=== PATIENT | female | born 1975 | race Caucasian/White ===

== ENCOUNTER 2021-03-21 11:46 | Day surgery (SDC) | payer OTHER ==
[2021-03-19 10:08] VITALS: BMI 58.4
[~2021-03-21 11:46] MED LIST: ALPRAZolam 0.25 MG TAB PO PRN; ALPRAZolam 0.5 MG TAB PO PRN; ASPIRIN 325 MG TAB PO STA; HEPARIN SODIUM,PORCINE 10,000 UNIT in SODIUM CHLORIDE 0.9% 1,000 ML IRRIGATION PRN; HEPARIN SODIUM,PORCINE 2,500 UNIT in SODIUM CHLORIDE 0.9% 250 ML IRRIGATION PRN; NITROGLYCERIN SL TABS 0.4 MG TAB SUBLINGUAL PRN; SODIUM CHLORIDE 0.9% 1,000 ML in EMPTY BAG 1 BAG IV ONE
[2021-03-21] MEDS ORDERED: fentaNYL (PF) 50 MCG/ML 2 ML AMP ONE (12:42)
[2021-03-21] MEDS ORDERED: LIDOCAINE 1% INJ 10MG/ML (20 ML MDV) ONE (12:42)
[2021-03-21] MEDS ORDERED: VERAPAMIL 2.5 MG/ML 2 ML AMP ONE (12:42)
[2021-03-21] MEDS ORDERED: HEPARIN SODIUM 1,000 UN/ML (10ML VL) ONE (12:42)
[2021-03-21 12:43] VITALS: RESP 18; TEMP 98.9
[2021-03-21] MEDS ORDERED: MIDAZOLAM 2 MG/2 ML VIAL IV ONE (13:11)
[2021-03-21] MEDS ORDERED: fentaNYL (PF) 50 MCG/ML 2 ML AMP IV ONE (13:11)
[2021-03-21] MEDS ORDERED: LIDOCAINE 1% INJ 10MG/ML (20 ML MDV) SQ ONE (13:12)
[2021-03-21] MEDS: VERAPAMIL SYRINGE (5 MG/10 ML) INTRAARTER ONE ×2 (13:14→13:24)
[2021-03-21] MEDS ORDERED: IOPAMIDOL-370 125ML BTL INJ ONE (13:21)
--- NOTE | 2021-03-21 13:27 | P.CARDCATH ---
Description of Procedure: PROCEDURES PERFORMED: Left heart catheterization, bilateral coronary angiography INDICATION: Abnormal stress test, chest pain HISTORY: She is a pleasant 45-year-old female with history of COVID-19 vaccination, family history of coronary artery disease with been having worsened episodes of chest pain associated with shortness of breath and occasionally with palpitations. She therefore had a stress test performed with stress-induced ischemia and therefore recommendation was for heart catheterization for definitive diagnosis. She was started on metoprolol with possible mild improvement in symptoms. CONSENT:I have discussed the risks, benefits and alternative therapies for the above-mentioned procedure and for both sedation/analgesia as well as necessary blood product administration, if indicated, as they pertain to this patient. The patient has indicated understanding and acceptance of the risks and procedures discussed. PROCEDURE: After the risks, benefits and alternatives of the above mentioned procedure explained in detail with the patient, informed consent was obtained. Patient was taken to the catheterization lab and prepped and draped in usual fashion. 1% lidocaine was used to anesthetize the right radial artery. A 6- Kazakh sheath was placed in the right radial artery using modified Seldinger technique. Left coronary angiography was performed with a 5-Kazakh JL 3.5 catheter and right coronary angiography was performed with a 5-Kazakh JR5 catheter in various views. A 5-Kazakh pigtail catheter was inserted into the left ventricle and pressure measurements were obtained. Left ventriculography was performed in the NAVAS projection with a power injection. The right radial sheath was removed and a TR band was placed with hemostasis achieved. The patient tolerated the procedure well. Patient was transported back to the post catheterization holding area in stable condition. Conscious Sedation: Patient was monitored under the direct supervision of vision of myself for conscious sedation using Versed and fentanyl for a total duration of 11 minutes HEMODYNAMICS: Aorta: 111/71 LV: 123/1, LVEDP 10 SELECTIVE CORONARY ARTERIOGRAPHY: LEFT MAIN: The left main is a large caliber vessel which bifurcates into the LAD and circumflex. There is no significant stenosis. LEFT ANTERIOR DESCENDING CORONARY ARTERY: LAD is a large caliber vessel which wraps around to the apex. There is no significant stenosis. LEFT CIRCUMFLEX CORONARY ARTERY: Left circumflex is a moderate caliber vessel without significant stenosis. RIGHT CORONARY ARTERY: The right coronary artery is a large caliber vessel which gives off a PDA and PLV branch and is the dominant vessel. There is no significant stenosis. FINAL IMPRESSION: 1. Normal coronary arteries as described above. 2. Normal left-sided filling pressures PLAN: 1. Aggressive risk factor modification per most recent ACC/AHA guidelines. 2. Patient minutes to some mild improvement with metoprolol. Other consideration may be arrhythmia and we would recommend a 1 week event monitor to further rule out any tachycardia or bradycardia arrhythmias. Follow-up in the office in 1-2 weeks.
[2021-03-21 16:22] VITALS: BP 144/89; PULSE 78
== END 2021-03-21 16:50 | disposition home or self-care (01) ==
LOC: CATHCVL 11:46 → EDBD 13:30 → CATHCVL 16:50
PROVIDERS: ATTEND Internal Medicine
DX: R94.39 Abnormal result of other cardiovascular function study (principal); R07.9 Chest pain, unspecified; Z82.49 Family history of ischemic heart disease and other diseases of the circulatory system
CPT/HCPCS: 93458; 81025; C1894; J2250; J2001; J3010; J1644; Q9967

== ENCOUNTER → 2021-06-19 | Outpatient (CLI) | payer OTHER ==
[2021-06-19 13:12] VITALS: BP 138/83; PULSE 92; RESP 18; TEMP 98.2; BMI 55.7
--- NOTE | 2021-06-19 14:08 | P.HPBAR ---
Bariatric H&P - History & Physicial H&P Date: 06/19/21 History & Physicial: Visit/CC: initial visit Patient initial contact: Initial weight: 149.685 kg Initial weight in pounds: 330.00 Height: 5 ft 4.5 in Initial BMI: 55.7 Last weight: Current weight: 149.685 kg Current weight in pounds: 330.00 Current BMI: 55.7 Rison body weight (based on NIH guidelines): 55.565 kg Excess body weight loss: 0.0% The patient is a 45 year-old F who presents for Bariatric Assessment. She comes in looking into the sleeve gastrectomy. She has tried in the past with weight watchers, Adipex and lost 60 pounds with weight regain and more. She has been trying to lose weight on her own with increasing walking and cutting out pop. Highest weight is at present. Her aunt was over 400-pounds and had the lap band and has done well. She denies moderate heartburn. No dysphagia. No prior surgeries to the stomach. She still has her gallbladder. She had 2-section and tubal ligation. She has hemorrhoids. No prior upper scope. No bleeding. No history of blood clots. No family history of bleeding or clots. No lower back pain. No hip pain. No knee pain. [facility] plan deferred. Past Medical History Additional Past Medical History / Comment(s): hx of SOB, leg swelling, chest pain History of Any Multi-Drug Resistant Organisms: None Reported Past Surgical History: Section, Heart Catheterization, Tubal Ligation Additional Past Surgical History / Comment(s): D&C. last heart cath march 2021. Past Anesthesia/Blood Transfusion Reactions: No Reported Reaction Past Psychological History: No Psychological Hx Reported Smoking Status: Never smoker Past Alcohol Use History: Rare Past Drug Use History: None Reported Surgical - Exam Vital Signs Temp Pulse Resp BP 98.2 F 92 18 138/83 06/19/21 13:07 06/19/21 13:07 06/19/21 13:07 06/19/21 13:07 Bariatric Checklist Checklist: Plan: Checklist: EGD: 1. Hiatal hernia: 2. H. Pylori: HgbA1c: Vitamin D: Smoking: Primary care physician referral: KENYATTA Bennett ([facility]) Psychiatry clearance: Cardiology clearance: Sleep study: Diet journal: VTE risk score: VTE risk level: Rehab needs at discharge:
[2021-06-19 14:59] LABS: HCT 47.1 % (34.0-46.0); MCHC 31.8 g/dL (31.0-37.0); Mean Platelet Volume 8.1; Platelet Count 296 k/uL (150-450); RBC 5.36 m/uL (3.80-5.40); RDW 12.5 % (11.5-15.5); WBC 11.3 k/uL (3.8-10.6)
[2021-06-19 15:32] LABS: INR 0.9 (<1.2); Partial Thromboplastin Time 23.6 sec (22.0-30.0); Prothrombin Time 9.6 sec (9.0-12.0)
[2021-06-20 01:03] LABS: % Iron Saturation 10.37 (12.00-45.00); ALT 29 U/L (8-44); AST 22 U/L (13-35); African American GFR (CKD) 100.6 (60.0-200.0); Albumin 4.5 g/dL (3.8-4.9); Albumin/Globulin Ratio 1.77 (1.60-3.17); Alkaline Phosphatase 78 U/L (41-126); Blood Urea Nitrogen 14.8 mg/dL (9.0-27.0); Calcium 9.7 mg/dL (8.7-10.3); Carbon Dioxide 29.9 mmol/L (21.6-31.8); Chloride 104 mmol/L (96-109); Chol/HDL Ratio 4.87 Ratio; Globulin 2.5 g/dL (1.6-3.3); Glucose 87 mg/dL (70-110); Iron 42 ug/dL (50-170); LDL Cholesterol,Calculated 102.4 mg/dL (0.0-131.0); Non-African American GFR(CKD) 86.8 (60.0-200.0); Potassium 4.4 mmol/L (3.5-5.5); Prealbumin 21.1 mg/dL (18.0-42.0); Sodium 140 mmol/L (135-145); Total Bilirubin <0.20 mg/dL (0.30-1.20); Total Iron Binding Capacity 403 ug/dL (228-460)
[2021-06-20 13:24] LABS: Zinc, Serum 68 ug/dL (60-130)
[2021-06-21 06:46] LABS: Vitamin A 62 ug/dL (38-106)
[2021-06-21 13:22] LABS: Vit B1(Thiamine) 99 ug/L (38-122)
[2021-06-21 16:07] LABS: Anabasine Urine <2.0 ng/mL (<2.0)
[2021-06-24 18:28] LABS: Selenium 118 mcg/L (63-160)
== END | disposition home or self-care (01) ==
LOC: BARWHC3 12:38
PROVIDERS: ATTEND Surgery Plastic and Reconstructive Surgery
DX: E89.1 Postprocedural hypoinsulinemia (principal); D50.8 Other iron deficiency anemias; E44.0 Moderate protein-calorie malnutrition; E55.9 Vitamin D deficiency, unspecified; K74.1 Hepatic sclerosis; N19 Unspecified kidney failure; K50.90 Crohn's disease, unspecified, without complications
CPT/HCPCS: 84255; 84134; 84425; 80061; 80053; 82607; 82728; 82525; 82746; 83540; 83550; 83735; 84100; 84443; 84590; 84630; 85027; 85610; 85730; 82306; 80323; 83970; 83036; 80307; 99203; 93005; G0482

== ENCOUNTER 2021-07-15 08:55 | Day surgery (SDC) | payer OTHER ==
[2021-07-11 12:00] VITALS: BMI 56.6
--- NOTE | 2021-07-15 06:59 | P.GSHP ---
History of Present Illness H&P Date: 07/15/21 CHIEF COMPLAINT: GERD HISTORY OF PRESENT ILLNESS: The patient is a 45-year-old female who presents reports gastroesophageal reflux disease. Upper endoscopy was offered for further evaluation and management. PAST MEDICAL HISTORY: Please see list. PAST SURGICAL HISTORY: Please see list. MEDICATIONS: Please see list. ALLERGIES: Please see list. SOCIAL HISTORY: No illicit drug use FAMILY HISTORY: No reports of Crohn disease or ulcerative colitis. REVIEW OF ORGAN SYSTEMS: CONSTITUTIONAL: No reports of fevers or chills. GI: Denies any blood in stools or constipation. PHYSICAL EXAM: VITAL SIGNS: Stable GENERAL: Well-developed and pleasant in no acute distress. HEENT: No scleral icterus. Extraocular movements grossly intact. Moist buccal mucosa. NECK: Supple without lymphadenopathy. CHEST: Unlabored respirations. Equal bilateral excursions. CARDIOVASCULAR: Regular rate and rhythm. Distal 2+ pulses. ABDOMEN: Soft, nondistended. MUSCULOSKELETAL: No clubbing, cyanosis, or edema. ASSESSMENT: 1. Gastroesophageal reflux disease PLAN: 1. Recommend proceeding with an upper endoscopy Past Medical History Additional Past Medical History / Comment(s): hx of SOB, leg swelling & chest pain after covid vaccine- she had heart monitor and heart cath and she states symptoms gradually subsided., low iron. History of Any Multi-Drug Resistant Organisms: None Reported Past Surgical History: Section, Heart Catheterization, Tubal Ligation Additional Past Surgical History / Comment(s): D&C. ,heart cath march 2021. Past Anesthesia/Blood Transfusion Reactions: Previous Problems w/ Anesthesia, Motion Sickness Additional Past Anesthesia/Blood Transfusion Reaction / Comment(s): states itchy after D & C. Past Psychological History: No Psychological Hx Reported Smoking Status: Never smoker Past Alcohol Use History: Rare Past Drug Use History: None Reported - Past Family History Mother Family Medical History: No Reported History Medications and Allergies Home Medications Medication Instructions Recorded Confirmed Type Multivitamin/Iron/Folic Acid 1 each PO DAILY 03/19/21 07/11/21 History [Centrum Adults Tablet] medroxyPROGESTERone [Depo-Provera] 150 mg IM Q90D 03/19/21 07/11/21 History Cetirizine HCl [Zyrtec] 10 mg PO DAILY 07/11/21 07/11/21 History Iron 36 mg PO DAILY 07/11/21 07/11/21 History Allergies Allergy/AdvReac Type Severity Reaction Status Date / Time No Known Allergies Allergy Verified 07/11/21 11:38
[~2021-07-15 08:55] MED LIST changes: -ALPRAZolam 0.25 MG TAB PO PRN; -ALPRAZolam 0.5 MG TAB PO PRN; -ASPIRIN 325 MG TAB PO STA; -HEPARIN SODIUM,PORCINE 10,000 UNIT in SODIUM CHLORIDE 0.9% 1,000 ML IRRIGATION PRN; -HEPARIN SODIUM,PORCINE 2,500 UNIT in SODIUM CHLORIDE 0.9% 250 ML IRRIGATION PRN; +LACTATED RINGERS 1,000 ML IV SCH; -NITROGLYCERIN SL TABS 0.4 MG TAB SUBLINGUAL PRN; -SODIUM CHLORIDE 0.9% 1,000 ML in EMPTY BAG 1 BAG IV ONE
[2021-07-15 09:21] VITALS: TEMP 98.7
--- NOTE | 2021-07-15 10:25 | P.PCN ---
Date of Procedure: 07/15/21 Description of Procedure: PREOPERATIVE DIAGNOSIS: Gastroesophageal reflux disease. Morbid obesity. POSTOPERATIVE DIAGNOSIS: Morbid obesity. Gastritis. Gastroesophageal reflux disease. OPERATION: Esophagogastroduodenoscopy with biopsies along antrum. SURGEON: Radha Boyle MD ANESTHESIA: MAC. INDICATIONS: The patient is a 47-year-old female who presents with a history of reflux disease. Benefits and risks of the procedure were described. Informed consent was obtained. DESCRIPTION: The patient was brought into the endoscopy suite and laid in the left lateral decubitus position. An Olympus gastroscope was passed along the posterior oropharynx down to the distal esophagus where the squamocolumnar junction was encountered at 37 cm from the incisors. The stomach was entered and no bile reflux was found. Additional findings are listed below. Biopsies with cold forceps were obtained of the antrum. The first through third portion of the duodenum was examined and unremarkable. Retroflexion of the scope confirmed Hill grade 2 lower esophageal valve. The squamocolumnar junction demonstrated LA grade B erosive esophagitis. The stomach was desufflated. The patient tolerated the procedure well. FINDINGS: Squamocolumnar junction 37 cm from the incisors. Diaphragmatic hiatus at 37 cm. Hill grade 2 lower esophageal valve. LA grade B erosive esophagitis. No active duodenitis. Chronic gastritis RECOMMENDATIONS: Upper endoscopy as needed. Plan - Discharge Summary New Discharge Prescriptions: New Omeprazole [PriLOSEC] 40 mg PO DAILY #14 cap Continue medroxyPROGESTERone [Depo-Provera] 150 mg IM Q90D Multivitamin/Iron/Folic Acid [Centrum Adults Tablet] 1 each PO DAILY Cetirizine HCl [Zyrtec] 10 mg PO DAILY Iron 36 mg PO DAILY Discharge Medication List Multivitamin/Iron/Folic Acid [Centrum Adults Tablet] 1 each PO DAILY 03/19/21 [History] medroxyPROGESTERone [Depo-Provera] 150 mg IM Q90D 03/19/21 [History] Cetirizine HCl [Zyrtec] 10 mg PO DAILY 07/11/21 [History] Iron 36 mg PO DAILY 07/11/21 [History] Omeprazole [PriLOSEC] 40 mg PO DAILY #14 cap 07/15/21 [Rx] Follow up [facility]ment(s[facility]Ref[facility] [place] [facility] - [facility]21 Patient Instructions/Handouts: Gastritis (DC), Diet for Stomach Ulcers and Gastritis (ED) Discharge Disposition: HOME SELF-CARE
[2021-07-15 10:44] VITALS: BP 148/92; PULSE 87; RESP 14
== END 2021-07-15 11:18 | disposition home or self-care (01) ==
LOC: ORWHC2ENDO 08:55
PROVIDERS: ATTEND Surgery Plastic and Reconstructive Surgery
DX: K21.9 Gastro-esophageal reflux disease without esophagitis (principal); K29.50 Unspecified chronic gastritis without bleeding; Z79.899 Other long term (current) drug therapy
CPT/HCPCS: 43239; 81025; 88305

== ENCOUNTER → 2021-07-31 | Outpatient (CLI) | payer OTHER ==
--- NOTE | 2021-07-31 13:53 | P.BASOAP ---
Subjective Progress Note Date: 07/31/21 She is looking into sleeve. No looking into the bypass. Labs reviewed. [facility] reviewed. She is looking into the gastrectomy. will need lysis of adhesions. Objective - Vital Signs Vital signs: Intake & Output 07/30/21 07/31/21 07/31/21 18:59 06:59 18:59 Weight 151.046 kg Assessment/Plan Plan: Date: Initial Weight: 149.685 kg Initial BMI: Current Weight: 151.046 kg Current BMI: Type of Surgery: Total Volume in Band: Previous Volume: Volume Removed: Volume Added: Band Size:
[2021-07-31 13:57] VITALS: BP 159/90; PULSE 72; RESP 18; TEMP 98.2; BMI 56.2
== END | disposition home or self-care (01) ==
LOC: BARWHC3 12:44
PROVIDERS: ATTEND Surgery Plastic and Reconstructive Surgery
DX: E66.01 Morbid (severe) obesity due to excess calories (principal); Z68.43 Body mass index [BMI] 50.0-59.9, adult
CPT/HCPCS: 99211

== ENCOUNTER → 2021-08-12 | Outpatient (CLI) | payer OTHER ==
[2021-08-12 11:31] VITALS: BMI 59.0
== END | disposition home or self-care (01) ==
LOC: BARWHC3 08:45
PROVIDERS: ATTEND Surgery Plastic and Reconstructive Surgery
DX: E66.01 Morbid (severe) obesity due to excess calories (principal)
CPT/HCPCS: 97804

== ENCOUNTER → 2021-10-16 | Outpatient (CLI) | payer OTHER ==
--- NOTE | 2021-10-16 16:17 | P.BASOAP ---
Subjective Progress Note Date: 10/16/21 Medical supervise weight loss for 6 months described. Currently recommend download food diary general. Follow-up in 1 month. Appropriate weight loss reviewed. Assessment/Plan Plan: Date: Initial Weight: 149.685 kg Initial BMI: Current Weight: Current BMI: Type of Surgery: Total Volume in Band: Previous Volume: Volume Removed: Volume Added: Band Size:
[2021-10-16 16:19] VITALS: BP 186/99; PULSE 87; TEMP 97.9; BMI 55.0
== END | disposition home or self-care (01) ==
LOC: BARWHC3 15:49
PROVIDERS: ATTEND Surgery Plastic and Reconstructive Surgery
DX: E66.01 Morbid (severe) obesity due to excess calories (principal); Z68.43 Body mass index [BMI] 50.0-59.9, adult
CPT/HCPCS: 99211

== ENCOUNTER → 2021-11-13 | Outpatient (CLI) | payer OTHER ==
[2021-11-13 15:36] VITALS: BP 154/94; PULSE 93; RESP 16; TEMP 98.2; BMI 55.3
--- NOTE | 2021-11-13 15:48 | P.BASOAP ---
Subjective Progress Note Date: 11/13/21 DATE OF SERVICE: 11/13/2021 CHIEF COMPLAINT: Morbid obesity. HISTORY OF PRESENT ILLNESS: Anita Desouza is a 46-year-old female who comes with lifelong morbid obesity. She comes in looking into the sleeve gastrectomy. As a result of her morbid obesity, she has developed heart disease. She is undergoing medical supervised weight loss. She has brought in her food journal. She has good food choices. Her carbs are under 200 grams daily and also under 150 g. She is obtaining too much protein of 150 grams daily. At height of 5 feet 4.5 inches, her ideal body weight is 144 pounds. Initial weight of 329 pounds BMI 55.8. She comes in 326 pounds from 325 pounds, 1 month ago. She has gained 1 pounds in 1 months. Her body mass index is 55.3. She is 182 pounds overweight. PHYSICAL EXAM: VITAL SIGNS: Height 5 foot 4.5 inches, weight 326 pounds. BMI 55.3 Vital Signs Temp 98.2 F 11/13/21 15:31 Pulse 93 11/13/21 15:31 Resp 16 11/13/21 15:31 BP 154/94 11/13/21 15:31 Pulse Ox GENERAL: Well-developed in no acute distress. HEENT: No scleral icterus. Extraocular movements grossly intact. Hears conversational speech. No nasal drainage. NECK: Supple without lymphadenopathy. CHEST: Nonlabored respirations with equal bilateral excursions. CARDIOVASCULAR: Regular rate and regular rhythm. Distal 2+ pulses. ABDOMEN: Obese, soft, nontender, nondistended. MUSCULOSKELETAL: No clubbing, cyanosis. NEURO: No focal or lateralizing signs. Cranial nerves 2 through 12 grossly within normal limits. PSYCH: Appropriate affect. Alert and oriented to person, place and time. SKIN: Good skin turgor. Well perfused. ASSESSMENT: 1. Morbid obesity due to excess calories 2. Body mass index of 56.4 to 55.3 3. Angina 4. Leukocytosis 5. Iron deficiency 6. Hypertriglyceridemia 7. Peritoneal adhesions 8. Hypertension PLAN: 1. Recommend carbs under 150 grams daily. 2. She has too much protein of 150 grams. Recommend decrease protein to 80 g daily. 3. Follow up in 1 month otherwise, she demonstrates excellent food choices. Objective - Vital Signs Vital signs: Vital Signs Temp 98.2 F 11/13/21 15:31 Pulse 93 11/13/21 15:31 Resp 16 11/13/21 15:31 BP 154/94 11/13/21 15:31 Pulse Ox Intake & Output 11/12/21 11/13/21 11/13/21 18:59 06:59 18:59 Weight 148.325 kg Assessment/Plan Plan: Date: 11/13/21 Initial Weight: 149.685 kg Initial BMI: 55.7 Current Weight: 148.325 kg Current BMI: 55.3 Type of Surgery: Total Volume in Band: Previous Volume: Volume Removed: Volume Added: Band Size:
== END | disposition home or self-care (01) ==
LOC: BARWHC3 15:26
PROVIDERS: ATTEND Surgery Plastic and Reconstructive Surgery
DX: E66.01 Morbid (severe) obesity due to excess calories (principal); I20.9 Angina pectoris, unspecified; D72.829 Elevated white blood cell count, unspecified; E61.1 Iron deficiency; E78.1 Pure hyperglyceridemia; K66.0 Peritoneal adhesions (postprocedural) (postinfection); I10 Essential (primary) hypertension; Z68.43 Body mass index [BMI] 50.0-59.9, adult
CPT/HCPCS: 99211

== ENCOUNTER → 2021-12-18 | Outpatient (CLI) | payer OTHER ==
--- NOTE | 2021-12-18 13:35 | P.BASOAP ---
Subjective Progress Note Date: 12/18/21 DATE OF SERVICE: 12/18/2021 CHIEF COMPLAINT: Morbid obesity. HISTORY OF PRESENT ILLNESS: Anita Desouza is a 46-year-old female who comes with lifelong morbid obesity. She comes in looking into the sleeve gastrectomy. She comes in for medical supervised weight loss including dietary food journal. She has appropriate protein intake between 50-100 g daily. She has appropriate caloric restriction. Caloric intake is less than 1600 Kcal daily. She denies abdominal pain. At height of 5 feet 4.5 inches, her ideal body weight is 144 pounds. Initial weight of 329 pounds BMI 55.8. She comes in 322 pounds from 326 pounds, 1 month ago. She has lost 4 pounds in 1 months. Her body mass index is 54.6. She is 178 pounds overweight. PHYSICAL EXAM: VITAL SIGNS: Height 5 foot 4.5 inches, weight 322 pounds. BMI 54.6 Vital Signs Temp 98 F 12/18/21 13:35 Pulse 76 12/18/21 13:35 Resp BP 151/101 12/18/21 13:35 Pulse Ox Intake & Output 12/18/21 12/18/21 12/19/21 06:59 18:59 06:59 Weight 146.51 kg GENERAL: Well-developed in no acute distress. HEENT: No scleral icterus. Extraocular movements grossly intact. Hears conversational speech. No nasal drainage. NECK: Supple without lymphadenopathy. CHEST: Nonlabored respirations with equal bilateral excursions. CARDIOVASCULAR: Regular rate and regular rhythm. Distal 2+ pulses. ABDOMEN: Obese, soft, nontender, nondistended. MUSCULOSKELETAL: No clubbing, cyanosis. NEURO: No focal or lateralizing signs. Cranial nerves 2 through 12 grossly within normal limits. PSYCH: Appropriate affect. Alert and oriented to person, place and time. SKIN: Good skin turgor. Well perfused. ASSESSMENT: 1. Morbid obesity due to excess calories 2. Body mass index of 56.4 to 54.6 3. Angina 4. Leukocytosis 5. Iron deficiency 6. Hypertriglyceridemia 7. Peritoneal adhesions 8. Hypertension 9. Dietary surveillance and counseling PLAN: 1. Continue medical supervised weight loss for 3-4 months. 2. She has persistent elevation of her blood pressure of over 4 reads and occasions. Patient reports she follows up with her PCP and has low blood pressures. 3. Recommend home blood pressure checks. Assessment/Plan Plan: Date: Initial Weight: 149.685 kg Initial BMI: Current Weight: Current BMI: Type of Surgery: Total Volume in Band: Previous Volume: Volume Removed: Volume Added: Band Size:
[2021-12-18 13:48] VITALS: PULSE 76; TEMP 98; BMI 54.6
[2021-12-18 13:49] VITALS: BP 151/101
== END | disposition home or self-care (01) ==
LOC: BARWHC3 12:11
PROVIDERS: ATTEND Surgery Plastic and Reconstructive Surgery
DX: E66.01 Morbid (severe) obesity due to excess calories (principal); I20.9 Angina pectoris, unspecified; D72.829 Elevated white blood cell count, unspecified; E78.1 Pure hyperglyceridemia; K66.0 Peritoneal adhesions (postprocedural) (postinfection); I10 Essential (primary) hypertension; Z71.3 Dietary counseling and surveillance; Z68.43 Body mass index [BMI] 50.0-59.9, adult
CPT/HCPCS: 99211

== ENCOUNTER → 2022-03-05 | Outpatient (CLI) | payer OTHER ==
[2022-03-05 14:30] VITALS: BP 148/84; PULSE 94; TEMP 98.2; BMI 53.4
--- NOTE | 2022-03-05 15:05 | P.BASOAP ---
Subjective Progress Note Date: 03/05/22 Sleeve gastrectomy. Plan for sleeve. Diet, fluids, figeting. Objective - Vital Signs Vital signs: Vital Signs Temp 98.2 F 03/05/22 14:26 Pulse 94 03/05/22 14:26 Resp BP 148/84 03/05/22 14:26 Pulse Ox FiO2 Intake & Output 03/04/22 03/05/22 03/05/22 18:59 06:59 18:59 Weight 143.335 kg Assessment/Plan Plan: Date: 03/05/22 Initial Weight: 149.685 kg Initial BMI: 55.7 Current Weight: 143.335 kg Current BMI: 53.4 Type of Surgery: Total Volume in Band: Previous Volume: Volume Removed: Volume Added: Band Size:
== END | disposition home or self-care (01) ==
LOC: BARWHC3 13:57
PROVIDERS: ATTEND Surgery Plastic and Reconstructive Surgery
DX: E66.01 Morbid (severe) obesity due to excess calories (principal); Z68.43 Body mass index [BMI] 50.0-59.9, adult
CPT/HCPCS: 99211

== ENCOUNTER → 2022-05-14 | Outpatient (CLI) | payer OTHER ==
[2022-05-14 23:33] LABS: Basophils # (A) 0.04 X 10*3/uL (0.00-0.10); Basophils % (A) 0.4 %; Eosinophils # (A) 0.18 X 10*3/uL (0.04-0.35); Eosinophils % (A) 1.7 %; HCT 43.6 % (37.2-46.3); HGB 13.5 g/dL (12.0-15.0); Immature Grans, Automated 0.3 %; Lymphocytes # (A) 3.49 X 10*3/uL (0.90-5.00); Lymphocytes % (A) 32.2 %; MCH 26.3 pg (27.0-32.0); MCV 84.8 fL (80.0-97.0); Monocytes # (A) 0.73 X 10*3/uL (0.20-1.00); Monocytes % (A) 6.7 %; NRBC Per 100 WBC 0 /100 WBCS (0.0-0.0); Neutrophils # (A) 6.37 X 10*3/uL (1.80-7.70); Neutrophils % (A) 58.7 %; Platelet Count 304 X 10*3/uL (140-440); RBC 5.14 X 10*6/uL (4.10-5.20); WBC 10.84 X 10*3/uL (4.50-10.00)
[2022-05-15 00:31] LABS: Albumin 4.5 g/dL (3.8-4.9); Albumin/Globulin Ratio 1.74 (1.60-3.17); Anion Gap 12.3 mmol/L (10.00-18.00); BUN/Creat Ratio 32.42 Ratio (12.00-20.00); Blood Urea Nitrogen 29.6 mg/dL (9.0-27.0); Calcium 9.6 mg/dL (8.7-10.3); Carbon Dioxide 22.1 mmol/L (20.0-27.5); Globulin 2.6 g/dL (1.6-3.3); Non-African American GFR(CKD) 75.9 (60.0-200.0); Potassium 4.7 mmol/L (3.5-5.5); Total Bilirubin 0.4 mg/dL (0.30-1.20); Total Protein 7.1 g/dL (6.2-8.2)
== END | disposition home or self-care (01) ==
LOC: LABPAT 15:24
PROVIDERS: ATTEND Surgery Plastic and Reconstructive Surgery
DX: Z01.812 Encounter for preprocedural laboratory examination (principal)
CPT/HCPCS: 80053; 85025; 93005

== ENCOUNTER 2022-05-26 08:00 | Inpatient (IN) | payer OTHER ==
[2022-06-16] MEDS ORDERED: ceFAZolin 3 GM in SODIUM CHLORIDE 0.9% 100 ML IVPB PRN (05:00)
[2022-06-16] MEDS ORDERED: ONDANSETRON 4 MG/2 ML VIAL IVP ONE ×2 (06:22→17:46)
[2022-06-16] MEDS ORDERED: DEXAMETHASONE SOD PHOSPHATE 4 MG/ML 1 ML VIAL IV ONE (06:22)
[2022-06-16] MEDS ORDERED: HYDROmorphone 0.5 MG/0.5 ML SYRINGE IVP PRN (06:22)
[2022-06-16] MEDS ORDERED: CHLORHEXIDINE GLUCONATE 15 ML CUP MUCOUS MEM PRN (07:00)
[2022-06-16] MEDS ORDERED: PANTOPRAZOLE 40 MG/10 ML VIAL IVP PRN (07:00)
[2022-06-16] MEDS ORDERED: ENOXAPARIN 40 MG/0.4 ML SYRINGE SQ PRN ×2 (10:10→15:14)
--- NOTE | 2022-06-16 10:10 | P.GSHP ---
History of Present Illness H&P Date: 06/16/22 CHIEF COMPLAINT: Morbid obesity HISTORY OF PRESENT ILLNESS: Anita Desouza is a 46-year-old female who comes with lifelong morbid obesity. She is looking into sleeve gastrectomy for management of morbid obesity. At height of 5 feet 4.5 inches, her ideal body weight is 144 pounds. Initial weight of 329 pounds BMI 55.8. PAST MEDICAL HISTORY: 1. Morbid obesity due to excess calories 2. Body mass index of 55.8, initial 3. Angina 4. Osteoarthritis lower extremities. PAST SURGICAL HISTORY: 1. Cardiac catheterization 2. D & C 3. Tubal ligation 4. section HOME MEDICATIONS: Home Medications Medication Instructions Recorded Confirmed Multivitamin/Iron/Folic Acid 1 each PO DAILY 03/19/21 05/19/22 [Centrum Adults Tablet] medroxyPROGESTERone [Depo-Provera] 150 mg IM Q90D 03/19/21 05/19/22 Cetirizine HCl [Zyrtec] 10 mg PO DAILY 07/11/21 05/19/22 Iron 36 mg PO DAILY 07/11/21 05/19/22 Omeprazole [PriLOSEC] 40 mg PO DAILY PRN 02/05/22 05/19/22 ALLERGIES: Allergies Allergy/AdvReac Type Severity Reaction Status Date / Time No Known Allergies Allergy Verified 05/19/22 10:08 SOCIAL HISTORY: No past tobacco use. FAMILY HISTORY: No family history of ulcerative colitis disease or Crohn's disease. Family history of morbid obesity. No lupus in the family. No reports of stomach or esophageal cancer. REVIEW OF ORGAN SYSTEMS: CONSTITUTIONAL: At height of 5 feet 4.5 inches, her ideal body weight is 144 pounds. She comes in 329 pounds. Her body mass index is 55.8. She is 185 pounds overweight. HEENT: Denies any active troubles with vision or hearing. ENDOCRINE: Has diabetes. No hypothyroidism. CARDIOVASCULAR: Past reports of palpitations or heart attacks or chest pain. RESPIRATORY: Has shortness of breath. GASTROINTESTINAL: Denies any bright red blood per rectum. No diarrhea. No constipation. Has hemorrhoids. GENITOURINARY: Has bladder urgency. No recent blood in urine MUSCULOSKELETAL: Has lower back pain and joint pain. Has osteoarthritis of the knees. NEURO: No headaches. No seizure disorders. Has neuropathy. PSYCH: Has depression. No suicidal ideation. RHEUMATOLOGIC: No lupus. No rheumatoid arthritis. HEMATOLOGIC: Denies any abnormal bleeding or bruising. SKIN: No rash. No skin cancer. PHYSICAL EXAM: VITAL SIGNS: Height 5 foot 4.5 inches, weight 315 pounds. BMI 53.4 GENERAL: Well-developed in no acute distress. HEENT: No scleral icterus. Extraocular movements grossly intact. Hears conversational speech. No nasal drainage. NECK: Supple without lymphadenopathy. CHEST: Nonlabored respirations with equal bilateral excursions. CARDIOVASCULAR: Regular rate and regular rhythm. Distal 2+ pulses. ABDOMEN: Obese, soft, nontender, nondistended. MUSCULOSKELETAL: No clubbing, cyanosis. NEURO: No focal or lateralizing signs. Cranial nerves 2 through 12 grossly within normal limits. PSYCH: Appropriate affect. Alert and oriented to person, place and time. SKIN: Good skin turgor. Well perfused. ASSESSMENT: 1. Morbid obesity due to excess calories 2. Body mass index of 56.4 to 53.4 3. Angina 4. Osteoarthritis left extremities PLAN: 1. Bariatric options between a sleeve, band and a Wendy-en-Y gastric bypass were reviewed in detail. The patient elected for a sleeve gastrectomy. Robotic assisted approach described. 2. The [place] [facility] Data was also reviewed with benefits and risks as described. 3. An 8 page second-generation bariatric consent form was reviewed in detail including potential of bleeding, infection, leaks, adequate weight loss, nutritional deficiencies which the patient demonstrated understanding of the risks. 4. A 2 week high-protein low caloric 800 kcal diet described to address hepatomegaly. 5. Preoperative labs including complete metabolic panel and CBC with type and screen recommended. 6. DVT prophylaxis per [place] [facility]. 7. Antibiotic prophylaxis. 8. Inpatient hospitalization anticipated for more than 2 nights. 9. All questions and concerns were addressed with the patient. 10. She is at elevated risk for perioperative complications with body mass index over 50. 11. Overall, patient has expressed understanding of bariatric care including postoperative diet and commitment of lifestyle. Patient should benefit from surgical intervention for correction of her morbid obesity. 12. Fluid intake over 64 ounces described including ambulation and exercising described. Past Medical History Past Medical History: GERD/Reflux Additional Past Medical History / Comment(s): hx of SOB, leg swelling & chest pain after covid vaccine- she had heart monitor and heart cath and she states symptoms gradually subsided., low iron. arthritis in back and shoulder, History of Any Multi-Drug Resistant Organisms: None Reported Past Surgical History: Section, Heart Catheterization, Tubal Ligation Additional Past Surgical History / Comment(s): D&C. ,heart cath march 2021. EKG, Past Anesthesia/Blood Transfusion Reactions: Previous Problems w/ Anesthesia, Motion Sickness Additional Past Anesthesia/Blood Transfusion Reaction / Comment(s): states itchy after D & C. Smoking Status: Never smoker - Past Family History Mother Family Medical History: No Reported History Father Family Medical History: Hypertension Medications and Allergies Home Medications Medication Instructions Recorded Confirmed Type Multivitamin/Iron/Folic Acid 1 each PO DAILY 03/19/21 06/12/22 History [Centrum Adults Tablet] medroxyPROGESTERone [Depo-Provera] 150 mg IM Q90D 03/19/21 06/12/22 History Cetirizine HCl [Zyrtec] 10 mg PO DAILY 07/11/21 06/12/22 History Iron 36 mg PO DAILY 07/11/21 06/12/22 History Omeprazole [PriLOSEC] 40 mg PO DAILY PRN 02/05/22 06/12/22 History Allergies Allergy/AdvReac Type Severity Reaction Status Date / Time No Known Allergies Allergy Verified 06/12/22 15:28
[2022-06-16] MEDS: LACTATED RINGERS 1,000 ML IV SCH (11:47)
[2022-06-16] MEDS ORDERED: SCOPOLAMINE 1 MG/72 HR PATCH TRANSDERM ONE (15:14)
[2022-06-16] MEDS ORDERED: SCOPOLAMINE 1 MG/72 HR PATCH TRANSDERM STA (15:14)
[2022-06-16] MEDS ORDERED: MIDAZOLAM 2 MG/2 ML VIAL ONE (15:36)
[2022-06-16] MEDS ORDERED: GLYCOPYRROLATE 0.2 MG/ML 2 ML VIAL ONE (15:36)
[2022-06-16] MEDS ORDERED: KETOROLAC 15 MG/ML 1 ML VIAL ONE (15:36)
[2022-06-16] MEDS ORDERED: HYDROmorphone (PF) 1 MG/ML ONE (15:36)
[2022-06-16] MEDS ORDERED: fentaNYL (PF) 50 MCG/ML 2 ML AMP ONE (15:36)
[2022-06-16] MEDS ORDERED: ROCURONIUM 10 MG/ML (5 ML VIAL) IV ONE (15:36)
[2022-06-16] MEDS ORDERED: NEOSTIGMINE 1 MG/ML 10 ML VIAL ONE (15:36)
[2022-06-16] MEDS ORDERED: SUCCINYLCHOLINE CHLORIDE 200 MG/10 ML VIAL IV ONE (15:36)
[2022-06-16] MEDS ORDERED: PROPOFOL 10 MG/ML 20 ML VIAL IV ONE (15:36)
[2022-06-16] MEDS ORDERED: LIDOCAINE 2% INJ 20 MG/ML (2 ML VIAL) ONE (15:36)
[2022-06-16] MEDS ORDERED: LIDOCAINE 0.5%-EPI 1:200,000 50 ML VIAL SQ ONE (16:07)
[2022-06-16] MEDS ORDERED: LACTATED RINGERS 1,000 ML IV ONE (17:01)
[2022-06-16] MEDS ORDERED: HYDROmorphone 1 MG/ML 1 ML SYRINGE IVP PRN (17:51)
[2022-06-16] MEDS ORDERED: diphenhydrAMINE 50 MG/ML 1 ML VIAL IVP PRN (17:51)
[2022-06-16] MEDS ORDERED: SODIUM CHLORIDE 0.9% 2,000 ML IV ONE (17:51)
[2022-06-16] MEDS ORDERED: NALOXONE 0.4 MG/ML 1 ML VIAL IV PRN (17:51)
[2022-06-16] MEDS ORDERED: HYOSCYAMINE ORAL DROPS 1.875 MG/15 ML BOTTLE PO PRN (17:51)
[2022-06-16] MEDS ORDERED: fentaNYL PCA 500 MCG/50 ML BAG IV PRN (17:54)
--- NOTE | 2022-06-16 17:58 | P.OP ---
Date of Procedure: 06/16/22 Description of Procedure: SURGEON: SANCHEZ MATTHEWS MD PREOPERATIVE DIAGNOSES: 1. Morbid obesity due to excess calories 2. Body mass index of 56.4 to 53.4 3. Angina 4. Osteoarthritis left extremities POSTOPERATIVE DIAGNOSES: 1. Morbid obesity due to excess calories 2. Body mass index of 56.4 to 53.4 3. Angina 4. Osteoarthritis left extremities OPERATION: 1. Robotic assisted daVinci Xi laparoscopic sleeve gastrectomy with 40-Mongolian bougie, multiport. 2. Intraoperative esophagogastroduodenoscopy. ANESTHESIA: Gen. local anesthetic ESTIMATED BLOOD LOSS: 5 mL SPECIMENS REMOVED: Sleeve gastrectomy COMPLICATIONS: None. FINDINGS: 1. Negative intraoperative esophagogastrojejunoscopy leak test. 2. No hepatomegaly and no large hiatus hernia. 3. Total of 7 staplers used including 2 - 60 mm green robot marco and 5 - 60 mm blue robot loads used to create the gastric sleeve. 4. Sleeve gastrectomy, 30 x 5 cm INDICATIONS: Anita Desouza is a 46-year-old female who comes with lifelong morbid obesity. She is looking into sleeve gastrectomy for management of morbid obesity. At height of 5 feet 4.5 inches, her ideal body weight is 144 pounds. Initial weight of 329 pounds BMI 55.8. Today she comes in 292 pounds. All surgical options for morbid obesity had been described using the [place] bariatric surgery collaborative comorbidity resolution including complication risk score. A second-generation bariatric consent form was described in detail including the possibility of protein malnutrition, leaks, gastric stricture, venous thrombosis, gastroesophageal reflux disease, need for further surgery for which she demonstrated understanding. Benefits and risks of the procedure were described at length. Informed consent was obtained. DESCRIPTION: The patient was brought into the operating room theater. Preoperatively she had received Lovenox subcutaneously for DVT prophylaxis. Additionally she had Peridex oral solution as an oral decontaminant. After general induction, the abdomen was prepped and draped in standard sterile fashion. An Ioban draping was placed along the abdomen. A robotic da Stephanie Xi system was prepped and primed. At 15 cm from the xiphoid, proposed port sites were marked with indelible marker along the anterior axillary line bilaterally, mid axillary line bilaterally with each ports were marked 10 to 15 cm from each other. The robotic stapler port was marked for the right midclavicular line. A 5 mm 0 degrees laparoscopic trocar entry was performed along the left upper quadrant. The abdomen was insufflated to 15 mmHg pressure was tolerated well. Diagnostic laparoscopy demonstrated no injury to bowel, viscera, or mesentery. No evidence of large hiatus hernia was identified. The liver edge was sharp consistent with 2 week low-carb high-protein diet. A 8 mm port was placed along the left upper abdominal wall after exchanging the 5 mm port. A separate 8 mm port was placed along the left lateral abdominal wall. Please note that the ports were placed at least 20 cm away from the target anatomy. Care was taken to check each robotic arms were safely away from collision with the bed or the patient. At the epigastrium, a medium sized Noman liver retractor was placed under direct visualization with the Iron Assistant Food Service Director placed under the right shoulder of the patient. Next, 12-mm robot stapler port was placed along the right upper quadrant. The camera 8-mm port was maintained along the epigastrium. The patient was repositioned in reverse Trendelenburg position at 21-degrees after lowering the bed. The robot was docked along the left side of the patient. Using a grasper for arm 4, a vessel sealer for arm 3, including grasper for arm 1, the robotic system was docked and primed as described. Instruments were interchanged by the assistant research scientist for stapler loads. The camera was placed at 30- degrees down. I had sat at the console. The pylorus was identified and 6 cm proximally along the greater curvature of the stomach, the short gastrics were mobilized upwards to the angle of His using a vessel sealer. Hemostasis was excellent during this portion of the procedure. Next, the upper pole of the stomach was adherent to the left cristobal, which was gently dissected free using atraumatic grasper. I went to the head of the bed and placed 40-Mongolian blunt bougie into the stomach. The bougie was readjusted by the nurse boiler room operator. Robotic stapler green load 60 mm 2 followed by blue 60 mm x 5 loads were used to create the sleeve. Initial firing was across the antrum of the stomach towards the angle of His. The staple line was linear without corkscrewing. The space from the angularis incisura of the sleeve was approximately 4 cm. I then went to the head of the bed to perform the intraoperative esophagogastroduodenoscopy leak test. The bougie was withdrawn. The upper pole of the stomach was bathed using normal saline solution. The scope was withdrawn with careful inspection along the staple line for which no leaks were found along the entire length. Additionally,the sleeve was completely hemostatic without any encroachment along the angularis incisura. Its topology was a soft "J". No stricture was encountered upon placement of the scope. The GI tract was desufflated. The patient tolerated this portion of the procedure well. The scope was completely withdrawn. The robot was undocked. I then rescrubbed into case, whereby the irrigation fluid was aspirated from the abdominal cavity. Tisseel fibrin sealant was placed along the entire staple length. Once dried the Noman liver retractor was removed. Attention was now brought to removal of the specimen. The distal end of the sleeve gastrectomy specimen was brought out through the 12 mm port at the left upper quadrant. The specimen was gently removed en total. No contamination had occurred during this process. All instruments and pneumoperitoneum including irrigation fluid was removed from the abdominal cavity. The 12 mm port site was closed using 0-Vicryl and Rohit Pratt and irrigated with diluted hydrogen peroxide. The final incisions were closed using subcuticular interrupted suture of 4-0 Monocryl. Exofin was applied to the skin once the skin had been cleansed. OptiFoam dressing was placed along the stomach extraction site. The sleeve specimen was measured and checked also for leaks which none were found. At the end of the procedure, needle, sponge, and instrument count was verified c orrect by the surgical instruments inspector. The patient was taken to the postanesthesia care unit in stable condition. She had tolerated the procedure well. Intraoperative films and findings were reviewed with the patient's family.
[2022-06-16] MEDS: ONDANSETRON 4 MG/2 ML VIAL IVP SCH (19:42)
[2022-06-16] MEDS: ACETAMINOPHEN IV (For NPO) 1,000 MG in EMPTY BAG 1 BAG IVPB SCH (19:51)
[2022-06-16] MEDS: ALBUTEROL NEBULIZED 2.5 MG/3 ML INHALATION SCH (19:51)
[2022-06-16] MEDS ORDERED: DEXAMETHASONE SOD PHOSPHATE 10 MG/ML 1 ML VIAL IVP ONE (20:00)
[2022-06-16] MEDS: SIMETHICONE 40 MG/0.6 ML DROPS 2,000 MG/30 ML BOTTLE PO SCH (21:03)
[2022-06-16] MEDS: PANTOPRAZOLE 40 MG/10 ML VIAL IV SCH (22:01)
[2022-06-16] MEDS: 0.9% NACL WITH KCL 20 MEQ/L 1,000 ML IV SCH (22:37)
[2022-06-17] MEDS ORDERED: ceFAZolin 3 GM in SODIUM CHLORIDE 0.9% 100 ML IVPB SCH ×2
[2022-06-17] MEDS: ONDANSETRON 4 MG/2 ML VIAL IVP SCH ×3 (00:05→12:38)
[2022-06-17] MEDS: DEXAMETHASONE SOD PHOSPHATE 4 MG/ML 1 ML VIAL IVP SCH ×3 (00:05→12:38)
[2022-06-17] MEDS: SIMETHICONE 40 MG/0.6 ML DROPS 2,000 MG/30 ML BOTTLE PO SCH ×3 (00:05→12:38)
[2022-06-17] MEDS: 0.9% NACL WITH KCL 20 MEQ/L 1,000 ML IV SCH ×2 (02:47→06:55)
[2022-06-17] MEDS: ACETAMINOPHEN IV (For NPO) 1,000 MG in EMPTY BAG 1 BAG IVPB SCH ×3 (05:30→12:23)
[2022-06-17] MEDS: LACTATED RINGERS 1,000 ML IV SCH (06:16)
[2022-06-17 07:36] VITALS: RESP 18
[2022-06-17] MEDS: ALBUTEROL NEBULIZED 2.5 MG/3 ML INHALATION SCH ×3 (07:41→15:31)
[2022-06-17] MEDS ORDERED: 0.9% NACL WITH KCL 20 MEQ/L 1,000 ML IV SCH (08:00)
[2022-06-17] MEDS: PANTOPRAZOLE 40 MG/10 ML VIAL IV SCH (08:20)
[2022-06-17] MEDS ORDERED: LORATADINE 10 MG TAB PO SCH (09:00)
[2022-06-17] MEDS ORDERED: ENOXAPARIN 40 MG/0.4 ML SYRINGE SQ SCH (09:00)
--- NOTE | 2022-06-17 10:06 | FL ---
EXAMINATION TYPE: FL UGI DATE OF EXAM: 06/17/2022 COMPARISON: NONE HISTORY: Postop gastric sleeve. TECHNIQUE: A single contrast UGI study is performed with Isovue-370 orally. A total of 9 seconds of fluoroscopic time was utilized during procedure and 87 images obtained. FINDINGS: The esophagus shows normal motility and emptying into the stomach. No evidence of hiatal hernia or s tricture noted. Postsurgical changes from gastric sleeve. No evidence for leak.. Contrast easily passes through the e sophagus into the stomach No evidence of any mass or ulcer disease. IMPRESSION: Post surgical changes from gastric sleeve without evidence for leak.
[2022-06-17 11:19] LABS: Basophils # (A) 0.01 X 10*3/uL (0.00-0.10); Basophils % (A) 0.1 %; Eosinophils # (A) 0 X 10*3/uL (0.04-0.35); Eosinophils % (A) 0 %; HGB 13.7 g/dL (12.0-15.0); Immature Grans, Automated 0.4 %; Lymphocytes % (A) 8.9 %; MCH 27.6 pg (27.0-32.0); MCHC 32.6 g/dL (32.0-37.0); MCV 84.7 fL (80.0-97.0); Mean Platelet Volume 12.4 fL (9.5-12.2); NRBC Per 100 WBC 0 /100 WBCS (0.0-0.0); Neutrophils # (A) 9.03 X 10*3/uL (1.80-7.70); Neutrophils % (A) 89.6 %; Platelet Count 267 X 10*3/uL (140-440); RBC 4.96 X 10*6/uL (4.10-5.20); RDW 13.7 % (11.5-14.5); WBC 10.08 X 10*3/uL (4.50-10.00)
[2022-06-17 11:38] LABS: African American GFR (CKD) 89.5 (60.0-200.0); Anion Gap 14.4 mmol/L (10.00-18.00); Blood Urea Nitrogen 13.2 mg/dL (9.0-27.0); Calcium 9.3 mg/dL (8.7-10.3); Carbon Dioxide 17.6 mmol/L (20.0-27.5); Non-African American GFR(CKD) 77.2 (60.0-200.0); Phosphorus 2.7 mg/dL (2.4-5.1); Potassium 4.6 mmol/L (3.5-5.5)
[2022-06-17 11:40] LABS: Magnesium 1.9 mg/dL (1.5-2.4)
[2022-06-17 12:10] VITALS: BP 160/82; PULSE 98; TEMP 98.2
[2022-06-17 13:01] VITALS: BMI 51.8
--- NOTE | 2022-06-17 15:25 | P.DS ---
Providers Date of admission: 06/16/22 11:30 Expected date of discharge: 06/17/22 Attending physician: Radha Boyle Primary care physician: Stated None Hospital Course: Discharge diagnosis 1. Morbid obesity due to excess calories 2. Body mass index of 56.4 to 53.4 3. Angina 4. Osteoarthritis left extremities Hospital course Anita Desouza is a 46-year-old female who comes with lifelong morbid obesity. Patient is status post robotic-assisted laparoscopic sleeve gastrectomy. Patient has tolerated surgery well. Her upper GI shows no evidence of leak or obstruction. She is tolerating diet. She is afebrile. She is up and am bulating. She is urinating without difficulty. Her pain is controlled. She is stable for discharge. Physician Senior Electrical Project Manager note has been reviewed by physician. Signing provider agrees with the documented findings, assessment, and plan of care. Patient Condition at Discharge: Stable Plan - Discharge Summary Discharge Rx Participant: Yes New Discharge Prescriptions: New bisacodyL [Dulcolax] 5 mg PO DAILY PRN #10 tab PRN Reason: Constipation Simethicone 40 mg/0.6 ml Drops [Mylicon Drops] 40 mg PO PCHS PRN #30 ml PRN Reason: Gas Ondansetron Odt [Zofran Odt] 4 mg PO Q8HR PRN #9 tab PRN Reason: Nausea Omeprazole [PriLOSEC] 40 mg PO DAILY #30 cap Acetaminophen Tab [Tylenol] 1,000 mg PO Q6HR PRN #30 tablet PRN Reason: Pain Continue medroxyPROGESTERone [Depo-Provera] 150 mg IM Q90D Cetirizine HCl [Zyrtec] 10 mg PO DAILY Omeprazole [PriLOSEC] 40 mg PO DAILY PRN PRN Reason: reflux Discontinued Multivitamin/Iron/Folic Acid [Centrum Adults Tablet] 1 each PO DAILY Iron 36 mg PO DAILY Discharge Medication List medroxyPROGESTERone [Depo-Provera] 150 mg IM Q90D 03/19/21 [History] Cetirizine HCl [Zyrtec] 10 mg PO DAILY 07/11/21 [History] Omeprazole [PriLOSEC] 40 mg PO DAILY PRN 02/05/22 [History] Acetaminophen Tab [Tylenol] 1,000 mg PO Q6HR PRN #30 tablet 06/17/22 [Rx] Omeprazole [PriLOSEC] 40 mg PO DAILY #30 cap 06/17/22 [Rx] Ondansetron Odt [Zofran Odt] 4 mg PO Q8HR PRN #9 tab 06/17/22 [Rx] Simethicone 40 mg/0.6 ml Drops [Mylicon Drops] 40 mg PO PCHS PRN #30 ml 06/17/22 [Rx] bisacodyL [Dulcolax] 5 mg PO DAILY PRN #10 tab 06/17/22 [Rx] [facility]Ref[facility] [place] [facility] [place] [facility] 9:00 am Patient Instructions/Handouts: *Surgery [facility] - Scopalamine Patch Instructions Activity/Diet/Wound Care/Special Instructions: Liquid diet only for 2 weeks No lifting over 4 pounds in 4 weeks May Shower. No soaking in bath tubs 2 weeks Please notify your surgeon if you develop nausea and vomiting including new onset of abdominal pain. Continue to use incentive spirometry to prevent pneumonias. Please continue to ambulate at home to prevent blood clots in legs. Follow-up at the bariatric center. May shower. Dressings to be discontinued by surgeon in the office. Drink 64 oz of fluid daily. Start protein shakes on . Notify bariatric center for temp over 101.0, increased pain, drainage from incisions. No straws or carbonated beverages. Liquid diet only. Sugar content should be less than 6 g to avoid dumping syndrome. Take MOM for constipation. CRUSH, OPEN, OR CUT TABLETS LARGER THAN A SIZE OF A TIC TAC Hold on taking all vitamins until seen by surgeon in office Discharge Disposition: HOME SELF-CARE
[2022-06-18] MEDS ORDERED: bisacodyL 5 MG TABLET.DR PO PRN (08:00)
== END 2022-06-17 16:26 | disposition home or self-care (01) | DRG 621 ==
LOC: 2ORMAIN 06-16 11:30 → 4SSUR 06-16 18:07
PROVIDERS: ADMIT Surgery Plastic and Reconstructive Surgery; ATTEND Surgery Plastic and Reconstructive Surgery
PROC: 8E0W4CZ Robotic Assisted Procedure of Trunk Region, Percutaneous Endoscopic Approach (ICD-10-PCS; principal; 2022-06-16 13:25)
PROC: 0DB64Z3 Excision of Stomach, Percutaneous Endoscopic Approach, Vertical (ICD-10-PCS; principal; 2022-06-16 13:25)
PROC: 0DJ08ZZ Inspection of Upper Intestinal Tract, Via Natural or Artificial Opening Endoscopic (ICD-10-PCS; principal; 2022-06-16 13:25)
DX: E66.01 Morbid (severe) obesity due to excess calories (principal); Z68.43 Body mass index [BMI] 50.0-59.9, adult; M19.09 Primary osteoarthritis, other specified site; I20.9 Angina pectoris, unspecified; Z82.49 Family history of ischemic heart disease and other diseases of the circulatory system; Z71.3 Dietary counseling and surveillance; K21.9 Gastro-esophageal reflux disease without esophagitis; M47.9 Spondylosis, unspecified; M19.019 Primary osteoarthritis, unspecified shoulder
CPT/HCPCS: 43235; 74240; 80051; 82310; 82565; 83735; 84100; 84520; 85025; 86850; 86900; 86901; 88307; 94640